=== PATIENT | female | born 1995 | race Two or more races ===

== ENCOUNTER 2017-12-17 15:50 | Emergency (ER) ==
[2017-12-17 16:08] VITALS: BP 157/125; TEMP 97.6; BMI 42.7
--- NOTE | 2017-12-17 16:59 | ED.PDOC ---
General ED Provider: Dr. PASTOR REEVES Chief Complaint: Diarrhea Stated Complaint: DIARRHEA ADMIXED WITH BLOOD AND MUCUS Time Seen by Physician: 16:00 (MURRAY RN PRESENT AT ALL TIMES NOTED PT'S STOOLS AT BATHROOM BLOOS AND MUCUS) Mode of Arrival: Walk-In Information Source: Patient Exam Limitations: No limitations Referred to ED by: Other (NO FEVER , NO TOXIC PRESENTATION) Nursing and Triage Documentation Reviewed and Agree: Yes (SMALL AMOUNT OF BLOOD AND MUCUS NOTED IN STOOL) Does patient meet sepsis criteria?: Yes If yes, has appropriate treatment been initiated?: No System Inflammatory Response Syndrome: Not Applicable Sepsis Protocol: For patient's 13 years and over: Temp is 96.8 and below OR 101 and greater Pulse >90 BPM Resp >20/minute Acutely Altered Mental Status Are patient's symptoms suggestive of a new infection, such as: -Pneumonia -Skin, Soft Tissue -Endocarditis -UTI -Bone, Joint Infection -Implantable Device -Acute Abdominal Infection -Wound Infection -Meningitis -Blood Stream Catheter Infection -Unknown GI Complaint Exam - Abdominal Pain Complaint/Exam Onset: Gradual Duration: 1 DAY Symptoms Are: Resolved Timing: Intermittent Initial Severity: Mild Current Severity: None Location of Pain: Diffuse Radiates To: Denies: Chest, Back, Flank, LLQ, RLQ, Inguinal Character: Reports: Cramping Aggravating: Reports: None Alleviating: Reports: None Associated Signs and Symptoms: Reports: Diarrhea. Denies: Diaphoresis, Fever, Cough, Chest pain, Dizziness, Back pain, Constipation, Blood in stool, Dysuria, Urinary frequency, Decreased urine output, Decreased appetite, Vaginal bleeding , Vaginal discharge, Nausea, Vomiting, Sore throat, Decreased activity AAA Risk Factors: Reports: None Cardiac Risk Factors: Reports: None Ectopic Risk Factors: Reports: None Ovarian Torsion Risk Factors: Reports: None Surgical Obstruction Risk Factors: Reports: None Related Surgical History: Reports: None Patient Rh Status: Unknown Abdominal Findings: Present: None Review of Systems - Review Of Systems Constitutional: Reports: No symptoms Eyes: Reports: No symptoms Ears, Nose, Mouth, Throat: Reports: No symptoms Respiratory: Reports: No symptoms Cardiac: Reports: No symptoms GI: Reports: Abdominal pain, Diarrhea, Rectal bleeding : Reports: No symptoms Musculoskeletal: Reports: No symptoms Skin: Reports: No symptoms Neurological: Reports: No symptoms Endocrine: Reports: No symptoms Hematologic/Lymphatic: Reports: No symptoms All Other Systems: Reviewed and Negative Past Medical History - Past Medical History Previously Healthy: Yes Endocrine: Reports: None Cardiovascular: Reports: Hypertension (0FF MEDICATIONX 1 MONTH) Respiratory: Reports: None Hematological: Reports: None Gastrointestinal: Reports: None Genitourinary: Reports: None Neuro/Psych: Reports: None Musculoskeletal: Reports: None Cancer: Reports: None Last Menstrual Period: October - Surgical History General Surgical History: Reports: None - Family History Family History: Reports: None - Social History Smoking Status: Never smoker Hx Substance Use: No Alcohol Screening: None - Immunizations Tetanus Shot up to Date: Yes Physical Exam - Physical Exam Appearance: Well-appearing, No pain distress, Well-nourished Eyes: FLEX, EOMI, Conjunctiva clear ENT: Ears normal, Nose normal, Oropharynx normal Respiratory: Airway patent, Breath sounds clear, Breath sounds equal, Respirations nonlabored Cardiovascular: RRR, Pulses normal, No rub, No murmur GI/: Soft, Nontender, No masses, Bowel sounds normal (RECTAL WNL . RN PRESENT ), No Organomegaly Musculoskeletal: Normal strength, ROM intact, No edema, No calf tenderness Skin: Warm, Dry, Normal color Neurological: Sensation intact, Motor intact, Reflexes intact, Cranial nerves intact, Alert, Oriented Psychiatric: Affect appropriate, Mood appropriate Critical Care Note - Critical Care Note Total Time (mins): 0 Course - Course Hematology/Chemistry: 12/17/17 16:10 12/17/17 16:10 Orders, Labs, Meds: Lab Review 12/17/17 12/17/17 12/17/17 16:00 16:10 16:10 WBC 10.92 H RBC 5.15 Hgb 12.7 Hct 39.3 MCV 76.3 L MCH 24.7 L MCHC 32.3 RDW Coeff of Dianna 14.6 Plt Count 385 Immature Gran % (Auto) 0.6 Neut % (Auto) 56.2 Lymph % (Auto) 34.2 [place] % (Auto) 5.3 Eos % (Auto) 3.1 Baso % (Auto) 0.6 Immature Gran # (Auto) 0.1 Neut # (Auto) 6.1 Lymph # (Auto) 3.7 H [place] # (Auto) 0.6 Eos # (Auto) 0.3 Baso # (Auto) 0.1 Sodium 138 Potassium 3.8 Chloride 108 H Carbon Dioxide 22 Anion Gap 11.8 BUN 6 L Creatinine 0.69 Estimated GFR (MDRD) 108.00 BUN/Creatinine Ratio 8.69 Glucose 86 Calcium 9.3 Total Bilirubin 0.3 AST 26 ALT 26 Alkaline Phosphatase 92 Total Protein 7.3 Albumin 3.3 L Globulin 4.0 Albumin/Globulin Ratio 0.83 Amylase 23 L Lipase 16 Serum , Qual Urine Color Yellow Urine Clarity Clear Urine pH 6.0 Ur Specific [place] 1.025 Urine Protein Negative Urine Glucose (UA) Negative Urine Ketones Negative Urine Blood Negative Urine Nitrite Negative Urine Bilirubin Negative Urine Urobilinogen 0.2 Ur Leukocyte Esterase Negative Stl Occult Blood (IFOB) Stool Occult Blood #2 Stool Occult Blood #3 12/17/17 12/17/17 16:10 16:10 WBC RBC Hgb Hct MCV MCH MCHC RDW Coeff of Dianna Plt Count Immature Gran % (Auto) Neut % (Auto) Lymph % (Auto) [place] % (Auto) Eos % (Auto) Baso % (Auto) Immature Gran # (Auto) Neut # (Auto) Lymph # (Auto) [place] # (Auto) Eos # (Auto) Baso # (Auto) Sodium Potassium Chloride Carbon Dioxide Anion Gap BUN Creatinine Estimated GFR (MDRD) BUN/Creatinine Ratio Glucose Calcium Total Bilirubin AST ALT Alkaline Phosphatase Total Protein Albumin Globulin Albumin/Globulin Ratio Amylase Lipase Serum , Qual Negative Urine Color Urine Clarity Urine pH Ur Specific [place] Urine Protein Urine Glucose (UA) Urine Ketones Urine Blood Urine Nitrite Urine Bilirubin Urine Urobilinogen Ur Leukocyte Esterase Stl Occult Blood (IFOB) Positive Stool Occult Blood #2 No specimen received Stool Occult Blood #3 No specimen received Orders Category Date Time Status AMYLASE Stat LAB 12/17/17 16:01 Ordered CBC W/ AUTO DIFF Stat LAB 12/17/17 16:01 Ordered COMPREHENSIVE METABOLIC PANEL Stat LAB 12/17/17 16:10 Completed LIPASE Stat LAB 12/17/17 16:01 Ordered OCCULT BLOOD, STOOL Stat LAB 12/17/17 16:09 Uncollected SERUM Stat LAB 12/17/17 Ordered URINALYSIS C & S IF INDICATED Stat LAB 12/17/17 16:[address] ABDOMEN/PELVIS WO CONTRAST Stat RADS 12/17/17 16:01 Ordered Vital Signs: Temp Pulse Resp BP Pulse Ox 12/17/17 15:50 97.6 F 92 H 18 157/125 H 98 Departure - Departure Time of Disposition: 17:01 Disposition: HOME SELF-CARE Discharge Problem: Diarrhea, Rectal bleed Abdominal pain Qualifiers: Abdominal location: unspecified location Qualified Code(s): R10.9 - Unspecified abdominal pain Instructions: Rectal Bleeding (ED) Condition: Good Pt referred to PMD for follow-up: Yes IPMP verified?: No Additional Instructions: Please call your Family Physician as soon as possible to schedule a follow-up appointment. YOU HAD BLOOD AND MUCUS IN YOUR STOOLD I ADVISE YOU TO SEE OUT CLINIC OR URGENT COLONSCOPY. ALSO YOUR BLOOD PRESSURE MEDS HAVE BEEN RENEWED PLEASE DO FOLLOW UP Allergies/Adverse Reactions: Allergies No Known Allergies Allergy (Verified 12/17/17 15:57) Home Medications: Ambulatory Orders Lisinopril [Zestril] 5 mg PO DAILY #14 tablet 12/17/17
--- NOTE | 2017-12-17 17:12 | CT ---
EXAM: CT of the abdomen pelvis without contrast History: Abdominal pain. Technique: Multiplanar CT images through the abdomen pelvis were obtained without the administration of IV contrast. Findings: 5 mm pleural based right lower lobe lung nodule. Lung bases are free of consolidation. No acute osseous abnormalities. No discrete gallstones identified by CT. No focal liver or splenic lesions. No renal stones and no hydronephrosis. No perinephric stranding. The appendix is not dilated or inflamed. No peripancreat ic inflammation. Adrenal glands are unremarkable. No dilated loops of bowel. No free air and no as cites. The 4.1 cm right adnexal cyst. No perirectal inflammation. No bladder wall thickening. Sca ttered colonic stool. Impression: Right adnexal cyst. Recommend further evaluation with pelvic ultrasound. Examination i s otherwise unremarkable.
== END 2017-12-17 17:34 | disposition home or self-care (01) ==
LOC: ED 15:50
DX: R19.7 Diarrhea, unspecified (principal); K62.5 Hemorrhage of anus and rectum; R10.9 Unspecified abdominal pain; N83.201 Unspecified ovarian cyst, right side; I10 Essential (primary) hypertension
CPT/HCPCS: 36415; 80053; 81001; 82150; 82272; 83690; 84703; 85025; 99283

== ENCOUNTER 2017-12-30 16:11 | Outpatient (CLI) | END 2017-12-30 16:12 | disposition home or self-care (01) | LOC: FCC-LAB 16:11 | PROVIDERS: ATTEND Family Medicine | DX: R19.7 Diarrhea, unspecified (principal) | CPT/HCPCS: 36415 ==

== ENCOUNTER 2017-12-31 11:51 | Outpatient (CLI) ==
--- NOTE | 2017-12-31 13:07 | US ---
EXAM: PELVIC ULTRASOUND COMPLETE HISTORY: Ovarian cyst, right side on CT FINDINGS: Ultrasound pelvis transvaginal. Transvaginal approach imaging was performed for improved r esolution and anatomic definition. The uterus measured 7.5 x 2.6 x 3.1 centimeters. Myometrium was unremarkable. Endometrial stripe wa s symmetric and normal thickness at 0.29 centimeters. The right ovary measured 3.9 x 2.2 x 2.2 centimeters and the left ovary 2.4 x 2.1 x 1.9 centimeters. Ovaries demonstrated scattered small follicles and normal blood flow. No ascites. IMPRESSION: 1. Ovaries had scattered small follicles with none larger than 1.8 cm. 2. Uterus and endometrium are normal. No ascites.
== END 2017-12-31 11:52 | disposition home or self-care (01) ==
LOC: RAD 11:51
PROVIDERS: ATTEND Family Medicine
DX: N83.201 Unspecified ovarian cyst, right side (principal)

== ENCOUNTER 2018-09-22 12:17 | Outpatient (CLI) | END 2018-09-22 12:18 | disposition home or self-care (01) | LOC: RHC-LAB 12:17 → FCC-LAB 12:18 | PROVIDERS: ATTEND Family Medicine | DX: N92.3 Ovulation bleeding (principal) | CPT/HCPCS: 36415; 84146; 84443; 85025 ==

== ENCOUNTER 2019-01-20 15:38 | Emergency (ER) ==
[2019-01-20 15:55] VITALS: BP 156/104; TEMP 97.7; BMI 39.3
[2019-01-20] MEDS ORDERED: MORPHINE 2 MG/ML SYRINGE IM STA (15:59)
[2019-01-20] MEDS ORDERED: ZOFRAN 4 MG/2 ML IM STA (15:59)
--- NOTE | 2019-01-20 16:25 | ED.PDOC ---
General ED Provider: Dr. PASTOR REEVES Chief Complaint: Headache Stated Complaint: headacche Time Seen by Physician: 15:45 (seen with may at all times ) Mode of Arrival: Walk-In Information Source: Patient Exam Limitations: No limitations Primary Care Provider: PERNELL GAMA Nursing and Triage Documentation Reviewed and Agree: Yes Does patient meet sepsis criteria?: No System Inflammatory Response Syndrome: Not Applicable Sepsis Protocol: For patient's 13 years and over: Temp is 96.8 and below OR 101 and greater Pulse >90 BPM Resp >20/minute Acutely Altered Mental Status Are patient's symptoms suggestive of a new infection, such as: -Pneumonia -Skin, Soft Tissue -Endocarditis -UTI -Bone, Joint Infection -Implantable Device -Acute Abdominal Infection -Wound Infection -Meningitis -Blood Stream Catheter Infection -Unknown Neurological Complaint Exam - Headache Complaint/Exam Onset: Gradual Duration: 2 days Symptoms Are: Still present Timing: Intermittent Episodes Lasting: Days Worst Headache Ever: No Initial Severity: Moderate Current Severity: Moderate Location: Right, Temporal Character: Reports: Throbbing Aggravating: Reports: Exertion Alleviating: Reports: Rest Associated Signs and Symptoms: Denies: Dizziness, Seizure, Nausea, Vomiting, Sinus pressure, Fever, Neck pain, Neck stiffness, Decreased LOC, Visual changes Related History: Reports: Similar episode Related Surgical History: Reports: None SAH Risk Factors: Reports: None Meningitis Risk Factors: Reports: None SDH Risk Factors: Reports: None Fundoscopic Exam: Present: Normal Findings Papilledema Present: No Temporal Artery Tenderness: Present: None Sinus Tenderness: Present: None TMJ Tenderness: Present: None ROM Limited In: No Limitiations Focal Weakness: Present: None Focal Sensory Loss: Present: None Gait: Normal Nystagmus Present: No Gag Reflex Present: Yes [id number]: Normal Findings Romberg Test Positive: No Babinski Sign: Negative Right, Negative Left Differential Diagnoses: Migraine Review of Systems - Review Of Systems Constitutional: Reports: No symptoms Eyes: Reports: No symptoms Ears, Nose, Mouth, Throat: Reports: No symptoms Respiratory: Reports: No symptoms Cardiac: Reports: No symptoms GI: Reports: No symptoms : Reports: No symptoms Musculoskeletal: Reports: No symptoms Skin: Reports: No symptoms Neurological: Reports: Headache Endocrine: Reports: No symptoms Hematologic/Lymphatic: Reports: No symptoms All Other Systems: Reviewed and Negative Past Medical History - Past Medical History Previously Healthy: Yes Endocrine: Reports: None Cardiovascular: Reports: Hypertension (0FF MEDICATIONX 1 MONTH) Respiratory: Reports: None Hematological: Reports: None Gastrointestinal: Reports: None Genitourinary: Reports: None Neuro/Psych: Reports: None Musculoskeletal: Reports: None Cancer: Reports: None Last Menstrual Period: last week - Surgical History General Surgical History: Reports: None - Family History Family History: Reports: None - Social History Smoking Status: Never smoker Hx Substance Use: (marijuana) Alcohol Screening: None Physical Exam - Physical Exam Appearance: Well-appearing, No pain distress, Well-nourished Eyes: FLEX, EOMI, Conjunctiva clear ENT: Ears normal, Nose normal, Oropharynx normal Respiratory: Airway patent, Breath sounds clear, Breath sounds equal, Respirations nonlabored Cardiovascular: RRR, Pulses normal, No rub, No murmur GI/: Soft, Nontender, No masses, Bowel sounds normal, No Organomegaly Musculoskeletal: Normal strength, ROM intact, No edema, No calf tenderness Skin: Warm, Dry, Normal color Neurological: Sensation intact, Motor intact, Reflexes intact, Cranial nerves intact, Alert, Oriented Psychiatric: Affect appropriate, Mood appropriate - NIH Stroke Scale 1a. Level of Consciousness: 0=Alert and keenly responsive 1b. Level of Consciousness Questions: 0=Answers correctly to two questions 1c. Level of Consciousness Commands: 0=Performs two tasks correctly 2. Best Gaze: 0=Normal 3. Visual: 0=No visual loss 4. Facial Palsy: 0=Normal 5a. Motor Left Arm: 0=No drift,arm holds 90 degrees for 10 sec., leg 30 degrees for 5 sec. 5b. Motor Right Arm: 0=No drift,arm holds 90 degrees for 10 sec., leg 30 degrees for 5 sec. 6a. Motor Left Le=No drift,arm holds 90 degrees for 10 sec., leg 30 degrees for 5 sec. 6b. Motor Right Le=No drift,arm holds 90 degrees for 10 sec., leg 30 degrees for 5 sec. 7. Limb Ataxia: 0=Absent 8. Sensory: 0=Normal 9. Best Language: 0=No aphasia 10. Dysarthria: 0=Normal 11. Extincion and Inattention: 0=Normal Stroke Scale Total: 0 Critical Care Note - Critical Care Note Total Time (mins): 0 Course - Course Orders, Labs, Meds: Orders Category Date Time Status Morphine Sulfate [Morphine 2 mg/ml Syringe] MEDS 01/20/19 15:59 Stat 4 mg IM ONCE STA Ondansetron HCl/Pf [Zofran 4 mg/2 ml] MEDS 01/20/19 15:59 Stat 4 mg IM ONCE STA Medications Discontinued Medications Generic Name Dose Route Start Last Admin Trade Name Bhavik PRN Reason Stop Dose Admin Morphine Sulfate 4 mg 01/20/19 15:59 01/20/19 16:13 Morphine 2 Mg/Ml Syringe IM 01/20/19 16:00 4 mg ONCE STA Administration Ondansetron HCl 4 mg 01/20/19 15:59 01/20/19 16:13 Zofran 4 Mg/2 Ml IM 01/20/19 16:00 4 mg ONCE STA Administration Vital Signs: Temp Pulse Resp BP Pulse Ox 01/20/19 15:38 97.7 F 95 H 20 156/104 H 98 Departure - Departure Time of Disposition: 16:25 Disposition: HOME SELF-CARE Discharge Problem: Headache Instructions: Acute Headache (ED) Condition: Good Pt referred to PMD for follow-up: Yes IPMP verified?: No Additional Instructions: Please call your Family Physician as soon as possible to schedule a follow-up appointment. Allergies/Adverse Reactions: Allergies No Known Allergies Allergy (Verified 01/20/19 15:44) Home Medications: Ambulatory Orders Melatonin 5 mg PO BEDTIME 09/22/18
== END 2019-01-20 17:15 | disposition home or self-care (01) ==
LOC: ED 15:38
DX: R51 Headache (principal); I10 Essential (primary) hypertension
CPT/HCPCS: 96372; 99283